=== PATIENT | male | born 1970 | race Caucasian/White ===

== ENCOUNTER 2017-05-09 17:29 | Emergency (ER) | payer OTHER ==
[~2017-05-09] VITALS: Ht 175.3 cm; Wt 103.6 kg
[2017-05-09] MEDS ORDERED: COLACE100 M1 PO (19:38)
[2017-05-09] MEDS ORDERED: TRIAMCINOLONE A15 GM TOP (19:38)
[2017-05-09] MEDS ORDERED: PROPRANOLOL HYD20 MG PO (19:38)
[2017-05-09] MEDS ORDERED: GAS RELIEF80 MG PO (19:39)
[2017-05-09] MEDS ORDERED: [UNRECOGNIZED DRUG - OTHER] PO (19:39)
[2017-05-09 20:26] VITALS: BP 118/62
== END 2017-05-09 20:22 | disposition home or self-care (01) ==
LOC: ED 17:29
DX: R10.84 Generalized abdominal pain (principal); G89.29 Other chronic pain; Z90.49 Acquired absence of other specified parts of digestive tract